=== PATIENT | male | born 1945 | race Caucasian/White ===

== ENCOUNTER 2025-10-29 14:31 | Emergency (ER) | payer MEDICARE ==
[~2025-10-29] VITALS: Ht 170.2 cm; Wt 70.0 kg
[2025-10-29 14:38] VITALS: O2SAT 99
[2025-10-29] MEDS: ACETAMINOPHEN 500MG TABLET PO ONE (16:51)
[2025-10-29] MEDS: TETANUS, DIPHTHERIA, PERTUSSIS VAC/PF 0.5ML (>10YR OLD) IM ONE (17:03)
[2025-10-29] MEDS: LIDOCAINE HCL/EPINEPHRINE 1%-EPI 1:100,000 20ML VIAL INFIL ONE (17:03)
[2025-10-29 19:00] VITALS: BP 148/81; PULSE 79; RESP 15; TEMP 36.8; O2SAT 99
== END 2025-10-29 19:01 | disposition home or self-care (01) ==
LOC: ER 14:31
DX: S01.81XA Laceration without foreign body of other part of head, initial encounter (principal); M79.661 Pain in right lower leg; F10.129 Alcohol abuse with intoxication, unspecified; W19.XXXA Unspecified fall, initial encounter; Y93.89 Activity, other specified; Y92.89 Other specified places as the place of occurrence of the external cause; Y99.8 Other external cause status; Y90.9 Presence of alcohol in blood, level not specified
CPT/HCPCS: 99285; 93971; 70450; 90715; 12013; 90471; J2004